=== PATIENT | male | born 1975 | race Caucasian/White ===

== ENCOUNTER 2017-04-22 20:26 | Inpatient (IN) | payer MEDICAID ==
[~2017-04-22] VITALS: Ht 185.4 cm; Wt 106.1 kg
[~2017-04-22 20:26] MED LIST: HALOPERIDOL 5 MG TABLET PO PRN
[2017-04-22] MEDS ORDERED: CLON.5 PO (20:59)
[2017-04-22] MEDS ORDERED: ARIP5TAB8 PO (20:59)
[2017-04-22] MEDS ORDERED: GABA-533 PO (20:59)
[2017-04-22] MEDS ORDERED: MIRT15 PO (20:59)
[2017-04-22] MEDS ORDERED: SODIUM CHLORIDE 0.9% 1,000 ML IV ONE (21:30)
[2017-04-22] MEDS ORDERED: FLUMAZENIL 0.1 MG/ML 5 ML VIAL IVP ONE (21:45)
[2017-04-22 22:23] LABS: BASOPHILS % (AUTO) 0.4 % (0.0-2.0); EOSINOPHILS % (AUTO) 2.5 % (1.0-6.0); HEMATOCRIT 34.8 % (41-53); HEMOGLOBIN 11.8 g/dL (13.5-17.5); LYMPHOCYTES # (AUTO) 2.9 K/uL (1.0-4.8); LYMPHOCYTES % (AUTO) 45.3 % (22.0-44.0); MEAN CORPUSCULAR HEMOGLOBIN 28.3 pg (26.0-34.0); MEAN CORPUSCULAR HGB CONC 33.8 G/dL (31.0-37.0); MEAN CORPUSCULAR VOLUME 84 fL (80-100); MONOCYTES # (AUTO) 0.7 K/uL (0.1-1.0); MONOCYTES % (AUTO) 10.7 % (2.0-9.0); NEUTROPHILS # (AUTO) 2.6 K/uL (1.8-7.7); NEUTROPHILS % (AUTO) 41.1 % (40.0-70.0); PLATELET COUNT (AUTO) 223 K/uL (150-450); RED BLOOD CELL COUNT(AUTO) 4.15 MIL/uL (4.50-5.90); RED CELL DISTRIBUTION WIDTH 14.2 % (11.5-14.5); WHITE BLOOD COUNT (AUTO) 6.4 K/uL (4.5-11.0)
[2017-04-22 22:35] LABS: ANION GAP 6 mmol/L (8-16); CALCIUM, TOTAL 8.5 mg/dL (8.8-10.5); CARBON DIOXIDE 28 mmol/L (22-29); CHLORIDE 102 mmol/L (98-107); GLOMERULAR FILTR. RATE CALC > 60 mL/min (>60); POTASSIUM 3.6 mmol/L (3.5-5.1); SODIUM SERUM 136 mmol/L (136-145); UREA NITROGEN, BLOOD 16 mg/dL (7-18)
[2017-04-22 22:40] LABS: ALANINE AMINOTRANSFERASE 83 U/L (12-78); ALBUMIN 3.1 g/dL (3.4-5.0); ASPARTATE AMINOTRANSFERASE 111 U/L (15-37); BILIRUBIN,TOTAL 0.4 mg/dL (0.1-1.0)
[2017-04-23 07:41] LABS: CHOL/HDL RATIO 2.7 (4.2-7.3)
[2017-04-23] MEDS ORDERED: METHADONE HCL 10 MG TABLET PO ONE (09:30)
[2017-04-23 16:45] VITALS: BP 120/69
[2017-04-23] MEDS: LORazepam 2 MG TABLET PO PRN (17:24)
[2017-04-23] MEDS ORDERED: INFLUENZA VIRUS VACCINE QVS 2017-18 (3YR+)/PF 60 MCG/0.5 ML SYRINGE IM ONE (19:15)
[2017-04-23 20:45] VITALS: BP 114/74
[2017-04-23] MEDS: ZOLPIDEM TARTRATE 10 MG TABLET PO PRN (22:39)
[2017-04-24 03:26] VITALS: BP 108/61
[2017-04-24] MEDS ORDERED: CloNIDine HCL 0.1 MG TABLET PO PRN (07:30)
[2017-04-24] MEDS ORDERED: ALBUTEROL SULFATE HFA 90 MCG/PUFF 8 GM INHALER IH PRN (07:30)
[2017-04-24] MEDS ORDERED: PETROLATUM,WHITE 71 GM JELLY TP PRN (07:30)
[2017-04-24] MEDS ORDERED: BENZOCAINE/MENTHOL LOZENGE MM PRN (07:30)
[2017-04-24] MEDS ORDERED: MAGNESIUM HYDROXIDE SUSPENSION 30 ML UDCUP PO PRN (07:30)
[2017-04-24] MEDS ORDERED: BACITRACIN 28.4 GM OINTMENT TP PRN (07:30)
[2017-04-24] MEDS ORDERED: MAG HYDROX/AL HYDROX/SIMETH ES 30 ML SUSPENSION UDCUP PO PRN (07:30)
[2017-04-24] MEDS ORDERED: ACETAMINOPHEN 325 MG TABLET PO PRN (07:30)
[2017-04-24] MEDS ORDERED: ONDANSETRON HCL 4 MG TABLET PO PRN (07:30)
[2017-04-24] MEDS ORDERED: LOPERAMIDE HCL 2 MG CAPSULE PO PRN (07:30)
[2017-04-24] MEDS ORDERED: IBUPROFEN 600 MG TABLET PO PRN (07:30)
[2017-04-24 08:05] VITALS: BP 123/65
[2017-04-24] MEDS ORDERED: OMEPRAZOLE 20 MG CAPSULE PO SCH (09:00)
[2017-04-24] MEDS ORDERED: DOCUSATE SODIUM 100 MG CAPSULE PO SCH (09:00)
[2017-04-24] MEDS ORDERED: METHADONE HCL 10 MG/5 ML SOLUTION ORAL.SYG PO SCH ×2 (09:00→16:00)
[2017-04-24] MEDS: BACITRACIN 28.4 GM OINTMENT TP SCH ×2 (09:18→17:14)
[2017-04-24] MEDS: CEPHALEXIN MONOHYDRATE 500 MG CAPSULE PO SCH ×4 (09:19→20:52)
[2017-04-24] MEDS: LORazepam 2 MG TABLET PO PRN ×2 (09:19→17:17)
[2017-04-24] MEDS: ARIPiprazole 15 MG TABLET PO SCH (14:48)
[2017-04-24] MEDS ORDERED: METHADONE HCL 10 MG TABLET PO SCH (16:00)
[2017-04-24 16:13] VITALS: BP 129/74
[2017-04-24] MEDS: ZOLPIDEM TARTRATE 10 MG TABLET PO PRN (20:52)
[2017-04-25 06:10] VITALS: BP 104/57
[2017-04-25] MEDS: CEPHALEXIN MONOHYDRATE 500 MG CAPSULE PO SCH ×5 (08:10→22:00)
[2017-04-25] MEDS: ARIPiprazole 15 MG TABLET PO SCH ×2 (08:10→09:00)
[2017-04-25] MEDS: METHADONE HCL 10 MG/5 ML SOLUTION ORAL.SYG PO SCH ×2 (08:36→11:01)
[2017-04-25] MEDS: BACITRACIN 28.4 GM OINTMENT TP SCH ×2 (09:00→17:00)
[2017-04-25 09:08] VITALS: BP 108/71
[2017-04-25] MEDS: LORazepam 2 MG TABLET PO PRN ×3 (11:24→22:00)
[2017-04-25] MEDS: MUPIROCIN CALCIUM 2% 15 GM CREAM TP SCH (16:00)
[2017-04-25] MEDS: MAGNESIUM SULFATE 454 GM BOX TP SCH (17:00)
[2017-04-25 17:03] VITALS: BP 139/79
[2017-04-25 22:03] VITALS: BP 112/93
[2017-04-26 08:47] VITALS: BP 106/60
[2017-04-26] MEDS: BACITRACIN 28.4 GM OINTMENT TP SCH ×3 (09:00→17:00)
[2017-04-26] MEDS: MUPIROCIN CALCIUM 2% 15 GM CREAM TP SCH (09:00)
[2017-04-26] MEDS: ARIPiprazole 15 MG TABLET PO SCH (09:32)
[2017-04-26] MEDS: CEPHALEXIN MONOHYDRATE 500 MG CAPSULE PO SCH ×4 (09:32→21:44)
[2017-04-26] MEDS: MULTIVITAMINS WITH MINERALS, THERAPEUTIC TABLET PO SCH (09:36)
[2017-04-26] MEDS: METHADONE HCL 10 MG/5 ML SOLUTION ORAL.SYG PO SCH (09:44)
[2017-04-26 10:50] VITALS: BP 126/73
[2017-04-26] MEDS: LORazepam 2 MG TABLET PO PRN (10:53)
[2017-04-26] MEDS: MAGNESIUM SULFATE 454 GM BOX TP SCH ×2 (12:51→17:00)
[2017-04-26] MEDS: ZOLPIDEM TARTRATE 10 MG TABLET PO PRN (21:45)
[2017-04-26 22:07] VITALS: BP 129/75
[2017-04-27] MEDS: LORazepam 2 MG TABLET PO PRN ×3 (02:27→21:34)
[2017-04-27 02:30] VITALS: BP 100/73
[2017-04-27] MEDS: ARIPiprazole 15 MG TABLET PO SCH (08:28)
[2017-04-27] MEDS: CEPHALEXIN MONOHYDRATE 500 MG CAPSULE PO SCH ×4 (08:29→20:14)
[2017-04-27] MEDS: MULTIVITAMINS WITH MINERALS, THERAPEUTIC TABLET PO SCH (08:29)
[2017-04-27] MEDS: METHADONE HCL 10 MG/5 ML SOLUTION ORAL.SYG PO SCH (08:30)
[2017-04-27 08:33] VITALS: BP 115/64
[2017-04-27 08:45] VITALS: BP 123/84
[2017-04-27] MEDS: BACITRACIN 28.4 GM OINTMENT TP SCH (09:00)
[2017-04-27] MEDS: MUPIROCIN CALCIUM 2% 15 GM CREAM TP SCH (13:18)
[2017-04-27] MEDS: MAGNESIUM SULFATE 454 GM BOX TP SCH (13:18)
[2017-04-27] MEDS: ZOLPIDEM TARTRATE 10 MG TABLET PO PRN (20:14)
[2017-04-27 21:32] VITALS: BP 136/80
[2017-04-28] MEDS: ARIPiprazole 15 MG TABLET PO SCH (08:36)
[2017-04-28] MEDS: CEPHALEXIN MONOHYDRATE 500 MG CAPSULE PO SCH ×3 (08:36→16:06)
[2017-04-28] MEDS: MULTIVITAMINS WITH MINERALS, THERAPEUTIC TABLET PO SCH (08:36)
[2017-04-28] MEDS: METHADONE HCL 10 MG/5 ML SOLUTION ORAL.SYG PO SCH (08:38)
[2017-04-28 08:41] VITALS: BP 111/82
[2017-04-28] MEDS: LamoTRIgine 100 MG TABLET PO SCH ×2 (09:34→16:07)
[2017-04-28] MEDS: GABAPENTIN 400 MG CAPSULE PO SCH ×3 (09:37→16:06)
[2017-04-28] MEDS ORDERED: LAMO100T56 PO (11:35)
[2017-04-28] MEDS ORDERED: MV-M1TAB2 PO (11:35)
[2017-04-28] MEDS ORDERED: CEPH500 PO (11:35)
[2017-04-28 16:10] VITALS: BP 119/59
== END 2017-04-28 18:30 | disposition home or self-care (01) | DRG 750 ==
LOC: EMS 20:28 → B3A 04-23 14:56 → 3EC 04-25 15:25
PROVIDERS: ADMIT Psychiatry & Neurology Child & Adolescent Psychiatry; ATTEND Psychiatry & Neurology Child & Adolescent Psychiatry
DX: F20.0 Paranoid schizophrenia (principal); F11.20 Opioid dependence, uncomplicated; R45.851 Suicidal ideations; B18.2 Chronic viral hepatitis C; F12.90 Cannabis use, unspecified, uncomplicated; F17.210 Nicotine dependence, cigarettes, uncomplicated; G40.909 Epilepsy, unspecified, not intractable, without status epilepticus; G47.00 Insomnia, unspecified; K21.9 Gastro-esophageal reflux disease without esophagitis; K59.00 Constipation, unspecified; L03.90 Cellulitis, unspecified; L97.529 Non-pressure chronic ulcer of other part of left foot with unspecified severity; Z59.0 Homelessness; Z79.899 Other long term (current) drug therapy; Z86.14 Personal history of Methicillin resistant Staphylococcus aureus infection; Z71.6 Tobacco abuse counseling; Z71.51 Drug abuse counseling and surveillance of drug abuser; Z89.511 Acquired absence of right leg below knee; Z91.14 Patient's other noncompliance with medication regimen; Z28.21 Immunization not carried out because of patient refusal
CPT/HCPCS: 70450; 87081; 93005; G0480; J3490; J7030